=== PATIENT | female | born 1945 | race Caucasian/White ===

== ENCOUNTER 2023-08-11 16:04 | Emergency (ER) | payer OTHER, SELFPAY ==
[2023-08-11 16:13] VITALS: BP 172/91
--- NOTE | 2023-08-11 20:00 | ED.GENMED ---
History of Present Illness
General
Chief Complaint: Head Injury
Source: patient
Exam Limitations: none
Time Seen by Provider: 08/11/23 16:59
Nursing documentation reviewed up to this point in time: agreed with
Travel History
Have you had any contact with someone who has COVID-19?: No
Do you have any symptoms of coronavirus? Fever > 100 degrees, chills, cough, shortness of breath, sore throat, loss of taste or smell, muscle aches, or headache?: No
History of Present Illness
History of Present Illness:
78-year-old female with past medical history of hypertension, hyperlipidemia presents to the emergency room for evaluation of a fall with head trauma also injured her right middle finger. Patient says she tripped on a curb and fell forward scraped
the left side of her face on the ground and also injured her right middle finger. No loss of consciousness. Denies any headache. Denies any nausea vomiting. She had some mild left-sided neck pain. Seems to have improved by the time of my
assessment. No numbness or tingling in her extremities. No injuries to the lower extremities. She is not on blood thinners.
Past History
Past History
ED Past Medical History: HTN, Hypercholesterolemia and Other (ileitis)
ED Past Surgical History: Cholecystectomy and Gynecological
Social History
Tobacco: Non-smoker
Alcohol: None
Drug: None
Personal:
Living: with family
Review of Systems
Review of Systems
All Other Systems: ROS reviewed and negative except as documented in HPI and ROS
Respiratory: Denies trouble breathing
Cardiac: Denies chest pain
ABD/GI: Denies abdominal pain, nausea or vomiting
Musculoskeletal: Reports neck pain and other (Finger injury); Denies back pain
Skin: Reports other (Abrasions)
Neurological: Denies dizzy, headache, weakness or numbness
Phy Exam
Physical Exam
Physical Exam:
General: Awake, alert, oriented x3; no acute distress
Head: Normocephalic, minor abrasion to the left cheek
Eyes: Conjunctiva normal, EOMI, pupils equal round reactive to light bilaterally
Throat: Airway intact, handling secretions
Neck: Trachea midline, no tenderness in the cervical spine and full range of motion without pain
Back: No tenderness in the thoracic or lumbar spine
Lungs: Breathing comfortably no distress
Heart: Regular rate; no rib tenderness
Abd: Soft, non distended, nontender
Neuro: Cranial nerves grossly intact, speech fluid; motor and sensory function intact in upper and lower extremities including slubber frame changer strength
Skin: Abrasion of the left cheek; minor abrasions to the dorsum of each hand
Extremities: Patient has a mallet finger right third digit�finger held in flexion at the DIP joint and unable to extend at the DIP joint; otherwise full range of motion in wrists, elbows, shoulders bilaterally, full range of motion bilateral lower
extremities and ambulatory in the ED
Scores
Heart Failure Risk
Heart Failure Risk Score: Not Applicable
Heart Score for Chest Pain Patients
STEMI patient?: Not applicable
Withdrawal Assessment of Alcohol
Withdrawal Assessment Completed?: Not applicable
Course
Orders/Labs/Results
Orders:
Orders
08/11/23 16:18
Cervical Spine wo Contrast CT [CT Cervical Spine W/o Iv Contr] Urgent
Comment:
Reason For Exam: fall, neck pain
Head wo Contrast CT [CT Head W/o Iv Contrast] Urgent
Comment:
Reason For Exam: fall, head injury
08/11/23 16:21
Facial Bones wo Contrast CT [CT Facial Bones W/o Iv Contras] Urgent
Comment:
Reason For Exam: fall, head injury, upper jaw pain
08/11/23 16:23
Finger(s)/Thumb 2 View Rt [CR Finger(s)/thumb Min 2 Vw Rt] Urgent
Comment:
Reason For Exam: deformity after a fall
Indicate Which Finger:: Middle Finger
08/11/23 17:00
Tetanus/Diphth/Acelpertussis [Adacel] 0.5 ml IM .ONCE ONE
Vital Signs
Initial and Last Documented VS:
Initial Vital Signs
Temp Pulse Resp BP Pulse Ox
36.9 C 72 20 172/91 99
08/11/23 16:13 08/11/23 16:13 08/11/23 16:13 08/11/23 16:13 08/11/23 16:13
Last Documented Vital Signs
Temp Pulse Resp BP Pulse Ox
36.9 C 72 20 172/91 99
08/11/23 16:13 08/11/23 16:13 08/11/23 16:13 08/11/23 16:13 08/11/23 16:13
MDM/Problems Addressed
Differential Diagnosis Includes:
Must rule out traumatic head injury, facial bone fracture, cervical spine fracture; will also assess for finger fracture, dislocation/subluxation although clinical exam concerning for extensor tendon injury
MDM/Problems Addressed:
78-year-old female presents after mechanical trip and fall from ground-level. Complained of some neck pain initially improved by my assessment, no other significant plaints aside from minor finger injury. Sent for CT of the head, cervical spine,
facial bones which showed no acute traumatic injuries. X-ray of the finger shows chip fracture and she clearly has signs concerning for extensor tendon injury in the right middle finger. She was placed in a finger splint and will refer to hand
surgery for assessment. Her tetanus is up-to-date. Discharged to follow-up with PCP and hand surgery as above.
Acute Exacerbation and/or Progression of Chronic Illness:
Acutely hypertensive
Acute Exacerbation and/or Progression of Chronic Illness: HTN
*Radiology
Radiology exam reviewed: radiology read reviewed
*Pulse Oximetry
Patient hypoxic: no
*Critical Care Note
Total Time (30-74mins, 75-104mins- exclusive of procedures): Not Applicable
Data Reviewed
Source: patient
ED Attending Note
-
Portions of this chart may have been created with voice recognition software.� Occasional wrong word or��sound alike� substitutions may have occurred due to the inherent limitations of voice recognition software.
Discharge Plan
Departure
Patient Disposition: Home (Routine Discharge)
Date of Disposition: 08/11/23
Time of Disposition: 18:33
Patient with high blood pressure during this ER visit?: Yes
Discharge Problem:
Abrasion, Mallet finger of right hand
Instructions: Skin Abrasions (DC), Common Finger Injuries ED
Prescriptions:
No Action
tamsulosin 0.4 MG capsule
0.4 mg PO DAILY Qty: 7 0RF
oxycodone-acetaminophen [Percocet] 1 EACH tablet
1 tab PO Q6HPRN PRN (Reason: pain) Qty: 14 0RF
methylprednisolone [Medrol (Carlos)] 4 MG tablets,dose pack
4 tab PO . DIRECT Qty: 1 0RF
methylprednisolone [Medrol (Carlos)] 4 mg tablets,dose pack
4 mg PO DIRECTED Qty: 21 0RF
baclofen 5 mg tablet
5 mg PO BID PRN (Reason: muscle spasm) Qty: 6 0RF
lidocaine [Lidoderm] 5 % adhesive patch,medicated
1 patch topical DAILY Qty: 30 0RF
Referrals:
Corby Duarte MD [Active] - Call in 1-3 days for appt (Hand Surgeon)
Sita Vazquez PA-C [Family Provider] -
Activity Restrictions/Additional Instructions:
Thank you for visiting the Emergency Department at [facility].
1. Please schedule a follow up appointment as directed. Call first thing tomorrow morning to make an appointment.
2. If indicated, please take your medications as instructed and indicated on discharge paperwork.
3. If any of your symptoms do not improve, or persist, or become more severe within 6-12 hours, please return to the emergency department for further care.
4. Please return to the emergency department if you develop a headache, neck pain/stiffness, fever greater than 100.4F, chest pain, shortness of breath, persistent nausea, vomiting, slurred speech, difficulty walking, numbness/tingling, weakness,
signs of infection or any other symptoms that are worrisome to you.
Please call [phone] if you have any questions.
Interventions
Interventions:
*Risk Screen - Suicide Last Done: 08/11/23 17:04
*General Assessment Last Done: 08/11/23 17:04
*Neglect/Abuse Screening Last Done: 08/11/23 17:04
*ED COVID-19 Vaccine History Last Done: 08/11/23 17:04
*Nursing Disposition Last Done: 08/11/23 18:45
ED- Neurological Assessment Last Done: 08/11/23 17:05
ED-Skin Assessment Last Done: 08/11/23 17:05
Discharge Date and Time
Discharge Date/Time: 08/11/23 18:45
== END 2023-08-11 18:45 | disposition home or self-care (01) ==
LOC: EMR 16:04
PROVIDERS: EMERGENCY PHYSICIAN Emergency Medicine; FAMILY PHYSICIAN Physician Assistant Medical
DX: M20.011 Mallet finger of right finger(s) (principal); S62.632A Displaced fracture of distal phalanx of right middle finger, initial encounter for closed fracture; S00.81XA Abrasion of other part of head, initial encounter; S60.512A Abrasion of left hand, initial encounter; S60.511A Abrasion of right hand, initial encounter; W01.0XXA Fall on same level from slipping, tripping and stumbling without subsequent striking against object, initial encounter; I10 Essential (primary) hypertension
CPT/HCPCS: 99284; 70450; 70486; 72125; 73140